=== PATIENT | male | born 2000 | race Hispanic/Latino ===

== ENCOUNTER 2018-12-02 21:30 | Emergency (ER) | payer OTHER ==
[2018-12-02 22:09] VITALS: BP 166/92
--- NOTE | 2018-12-02 22:10 | Emergency Department Report ---
Abscess Boil HPI - HPI Chief Complaint: Skin/Abscess/Foreign Body Stated Complaint: INFECTED TICK BITE Time Seen by Provider: 12/02/18 22:08 Duration: 1 Day Location: Other Severity: Mild History: Yes Insect Bite, No Fever, No Pain, No Purulent Drainage, No Numbness, No Foreign Body, No Previous History HPI: tick bite to lue back. red area around. pt took entire tick of yesterday. no systemic symptoms. Home Medications: Previous Rx's Medication Instructions Recorded Last Taken Type DOXYCYCLINE Hyclate [Vibramycin 100 mg PO Q12HR #20 capsule 12/02/18 Unknown Rx CAP] Allergies/Adverse Reactions: Allergies Allergy/AdvReac Type Severity Reaction Status Date / Time No Known Allergies Allergy Verified 12/02/18 21:34 ED Review of Systems ROS: Stated complaint: INFECTED TICK BITE Other details as noted in HPI Comment: All other systems reviewed and negative ED Past Medical Hx - Past Medical History Previous Medical History?: No - Surgical History Past Surgical History?: No - Medications Home Medications: Home Medications Medication Instructions Recorded Confirmed Last Taken Type DOXYCYCLINE Hyclate [Vibramycin 100 mg PO Q12HR #20 capsule 12/02/18 Unknown Rx CAP] ED Abscess Boil Physical Exam - Exam General: Vital signs noted. No distress. Alert and acting appropriately. Exam: Yes Heart Murmur, Yes Normal Neurologic Exam, Yes Normal Circulation, No Tenderness, No Fluctuance, No Surrounding Cellulites/Erythema, No Lymphangitis, No Crepitation Critical care attestation.: If time is entered above; I have spent that time in minutes in the direct care of this critically ill patient, excluding procedure time. ED Medical Decision Making - Medical Decision Making Vital Signs 12/02/18 22:07 Temperature 98.9 F Pulse Rate 73 Respiratory 18 Rate Blood Pressure 166/92 O2 Sat by Pulse 98 Oximetry simple insect bite abc intact vss dc home with doxy ED Disposition Clinical Impression: Insect bite Disposition: DC-01 TO HOME OR SELFCARE Is pt being admited?: No Does the pt Need Aspirin: No Condition: Stable Instructions: Tick Bite (ED) Additional Instructions: keep wound clean clean with soap and water med until gone motrin or tylenol for pain Prescriptions: DOXYCYCLINE Hyclate [Vibramycin CAP] 100 mg PO Q12HR #20 capsule Referrals: [facility] [Outside] - 3-5 Days Time of Disposition: 22:08
== END 2018-12-02 22:22 | disposition home or self-care (01) ==
LOC: ED 21:30
DX: S40.262A Insect bite (nonvenomous) of left shoulder, initial encounter (principal); W57.XXXA Bitten or stung by nonvenomous insect and other nonvenomous arthropods, initial encounter; Y93.89 Activity, other specified; Y92.89 Other specified places as the place of occurrence of the external cause; Y99.8 Other external cause status
CPT/HCPCS: 99282